=== PATIENT | female | born 1980 | race Caucasian/White ===

== ENCOUNTER 2018-03-23 16:40 | Emergency (ER) | payer OTHER ==
--- NOTE | 2018-03-23 17:18 | RAD ---
RIGHT GREAT TOE THREE VIEWS: INDICATIONS: Posttraumatic pain. FINDINGS: No evidence of a displaced fracture of the great toe of the right foot. There is mild osteoarthritis . No foreign body of the soft tissues is evident radiographically. IMPRESSION: No acute fracture-dislocation of the great toe of the right foot. POS: [facility]ACK
== END 2018-03-23 17:50 | disposition home or self-care (01) ==
LOC: ERS 16:40
DX: S90.211A Contusion of right great toe with damage to nail, initial encounter (principal); I10 Essential (primary) hypertension; G43.909 Migraine, unspecified, not intractable, without status migrainosus; F32.9 Major depressive disorder, single episode, unspecified; F17.210 Nicotine dependence, cigarettes, uncomplicated; W52.XXXA Crushed, pushed or stepped on by crowd or human stampede, initial encounter

== ENCOUNTER 2018-12-13 09:26 | Emergency (ER) | payer OTHER | END 2018-12-13 09:47 | disposition home or self-care (01) | LOC: SCSER 09:26 | DX: L03.116 Cellulitis of left lower limb (principal); I10 Essential (primary) hypertension; G43.909 Migraine, unspecified, not intractable, without status migrainosus; F32.9 Major depressive disorder, single episode, unspecified; F17.210 Nicotine dependence, cigarettes, uncomplicated | CPT/HCPCS: 99283 ==

== ENCOUNTER 2019-01-17 13:40 | Emergency (ER) | payer OTHER | END 2019-01-17 13:58 | disposition home or self-care (01) | LOC: SCSER 13:40 | DX: H01.006 Unspecified blepharitis left eye, unspecified eyelid (principal); H01.003 Unspecified blepharitis right eye, unspecified eyelid; I10 Essential (primary) hypertension; G43.909 Migraine, unspecified, not intractable, without status migrainosus; F32.9 Major depressive disorder, single episode, unspecified; F17.210 Nicotine dependence, cigarettes, uncomplicated; Z79.899 Other long term (current) drug therapy | CPT/HCPCS: 99283 ==

== ENCOUNTER 2019-01-24 14:36 | Emergency (ER) | payer OTHER ==
[2019-01-24] MEDS ORDERED: Acetaminophen 500 MG TAB ONE ×2 (16:19→18:20)
[2019-01-24] MEDS ORDERED: diphenhydrAMINE 50 MG/ML VIAL ONE ×2 (16:19→18:20)
[2019-01-24] MEDS ORDERED: Metoclopramide HCl 10 MG/2 ML VIAL ONE ×2 (16:19→18:20)
[2019-01-24] MEDS ORDERED: Metoclopramide HCl 10 MG/2 ML VIAL IVP SCH (16:30)
[2019-01-24] MEDS ORDERED: Sodium Chloride 0.9% 1,000 ML IV SCH (16:30)
[2019-01-24] MEDS ORDERED: diphenhydrAMINE 50 MG/ML VIAL IVP SCH (16:30)
[2019-01-24] MEDS ORDERED: Acetaminophen 500 MG TAB PO SCH (16:30)
[2019-01-24 16:32] LABS: #Eosinphils 0.1 thou/uL (0.0-0.7); #Lymphocytes 2.8 thou/uL (1.20-3.40); #Monocytes 0.3 thou/uL (0.11-0.59); #Neutrophils 5.4 thou/uL (1.40-6.50); %Basophils 0.3 % (0.0-1.0); %Eosinophils 1.4 % (0.0-10.0); %Lymphocytes 32.3 % (21.0-51.0); %Monocytes 3.6 % (0.0-10.0); %Neutrophils 62.4 % (42.0-75.0); Hemoglobin 13.1 g/dL (12.0-16.0); Mean Corpuscular HGB CONC 33.4 g/dL (32.0-36.0); Mean Corpuscular Hemoglobin 29.3 pg (27.0-31.0); Mean Corpuscular Volume 87.6 fL (78.0-98.0); Mean Platelet Volume 8.2 fL (7.4-10.4); Platelet Count 213 thou/uL (130-400); RBC Distribution Width 11.8 % (11.5-14.5); Red Blood Cell (RBC) Count 4.46 mill/uL (4.20-5.40); White Blood Cell (WBC) Count 8.7 thou/uL (4.8-10.8)
[2019-01-24 16:38] LABS: INR-International Normal Ratio 1.1; PTT 28.9 SEC (22.9-36.1); Prothrombin Time 14.2 SEC (12.0-14.7)
[2019-01-24 16:55] LABS: ALT (SGPT) 15 U/L (8-55); AST (SGOT) 19 U/L (5-34); Alkaline Phosphatase 76 U/L (40-110); Anion Gap 14 mmol/L (10-20); BUN (Urea Nitrogen) 11 mg/dL (7.0-18.7); Bilirubin, Total 0.4 mg/dL (0.2-1.2); Calc. Creatinine Clearance 0 mL/min (70-130); Calcium 9.4 mg/dL (7.8-10.44); Carbon Dioxide 22 mmol/L (22-29); Chloride 107 mmol/L (98-107); Estimated GFR-MDRD 84; Globulin 2.7 g/dL (2.4-3.5); Glucose 96 mg/dL (70-105); Protein, Total 6.7 g/dL (6.0-8.3); Sodium 139 mmol/L (136-145)
--- NOTE | 2019-01-24 17:07 | CT ---
Exam: CT brain PROVIDED CLINICAL HISTORY: Headache COMPARISON: 10/23/2018 FINDINGS: The ventricular system is normal in size and morphology. No evidence for intracranial hemorrhage or mass effect. The extracranial soft tissues and osseous structures demonstrate no evidence for an acute abnormality. IMPRESSION: No evidence for intracranial hemorrhage or mass effect.
[2019-01-24] MEDS ORDERED: Ketorolac Tromethamine 30 MG/ML VIAL ONE (18:24)
== END 2019-01-24 18:42 | disposition home or self-care (01) ==
LOC: ERS 14:36
DX: G43.909 Migraine, unspecified, not intractable, without status migrainosus (principal); I10 Essential (primary) hypertension; F32.9 Major depressive disorder, single episode, unspecified; F17.210 Nicotine dependence, cigarettes, uncomplicated; Z79.899 Other long term (current) drug therapy
CPT/HCPCS: 70450; 80053; 85025; 85610; 85730; 93005; 96365; 96375; J1200; J1885; J2765

== ENCOUNTER 2019-12-09 17:17 | Emergency (ER) | payer OTHER ==
[2019-12-09] MEDS ORDERED: Ketorolac Tromethamine 30 MG/ML VIAL ONE (17:36)
== END 2019-12-09 17:54 | disposition home or self-care (01) ==
LOC: ERS 17:17
DX: M67.432 Ganglion, left wrist (principal); G43.909 Migraine, unspecified, not intractable, without status migrainosus; I10 Essential (primary) hypertension; F32.9 Major depressive disorder, single episode, unspecified; F17.210 Nicotine dependence, cigarettes, uncomplicated; Z79.899 Other long term (current) drug therapy
CPT/HCPCS: 96372; 99283; J1885

== ENCOUNTER 2020-03-20 08:35 | Emergency (ER) | payer OTHER ==
[2020-03-20] MEDS ORDERED: Acetaminophen 500 MG TAB ONE (09:01)
[2020-03-20 09:08] LABS: Bilirubin Negative (Negative); Blood, Urine Negative (Negative); Clarity Clear (Clear); Glucose, Urine (Dipstick) Normal (Negative); Ketone, Urine Negative (Negative); Leukocyte Negative Leu/uL (Negative); Nitrite Negative (Negative); Protein, Urine (Dipstick) 10 mg/dL (Neg-Trace); Specific Gravity, Urine 1.027 (1.002-1.036); Urobilinogen 6 mg/dL (Less than 2)
[2020-03-20 09:43] LABS: #Basophils 0.1 thou/uL (0.0-0.2); #Eosinphils 0.1 thou/uL (0.0-0.7); #Lymphocytes 1.4 thou/uL (1.20-3.40); #Monocytes 0.3 thou/uL (0.11-0.59); #Neutrophils 4.6 thou/uL (1.40-6.50); %Basophils 0.8 % (0.0-1.0); %Eosinophils 1.1 % (0.0-10.0); %Lymphocytes 21.6 % (21.0-51.0); %Monocytes 5.2 % (0.0-10.0); %Neutrophils 71.4 % (42.0-75.0); Hemoglobin 10.6 g/dL (12.0-16.0); Mean Corpuscular Hemoglobin 30.8 pg (27.0-31.0); Mean Corpuscular Volume 90.5 fL (78.0-98.0); Mean Platelet Volume 8.2 fL (7.4-10.4); Platelet Count 200 thou/uL (130-400); RBC Distribution Width 12.3 % (11.5-14.5); Red Blood Cell (RBC) Count 3.45 mill/uL (4.20-5.40); White Blood Cell (WBC) Count 6.4 thou/uL (4.8-10.8)
[2020-03-20 10:02] LABS: ALT (SGPT) 10 U/L (8-55); AST (SGOT) 12 U/L (5-34); Albumin 3.3 g/dL (3.5-5.0); Alkaline Phosphatase 64 U/L (40-110); Anion Gap 13 mmol/L (10-20); BUN (Urea Nitrogen) 11 mg/dL (7.0-18.7); Bilirubin, Total 0.4 mg/dL (0.2-1.2); Calc. Creatinine Clearance 0 mL/min (70-130); Carbon Dioxide 19 mmol/L (22-29); Chloride 109 mmol/L (98-107); Globulin 2.7 g/dL (2.4-3.5); Glucose 82 mg/dL (70-105); Potassium 3.7 mmol/L (3.5-5.1); Sodium 137 mmol/L (136-145)
--- NOTE | 2020-03-20 10:06 | ULT ---
Pelvic sonogram transabdominal imaging with duplex evaluation HISTORY: Pelvic pain. Ovarian pathology. Second trimester gestation. FINDINGS: Urinary bladder is partially distended. Intrauterine gestation evident. Heart motion confir med at 143 bpm. No free fluid evident within the maternal pelvis. Right ovary is 3.5 cm length and the left 3.0 cm. Each has a normal appearance with good color and sp ectral Doppler flow. IMPRESSION : No ovarian abnormalities are demonstrated.
== END 2020-03-20 10:34 | disposition home or self-care (01) ==
LOC: ERS 08:35
DX: O99.891 Other specified diseases and conditions complicating pregnancy (principal); R10.32 Left lower quadrant pain; O10.912 Unspecified pre-existing hypertension complicating pregnancy, second trimester; Z3A.18 18 weeks gestation of pregnancy
CPT/HCPCS: 76856; 80053; 81003; 85025; 93976

== ENCOUNTER 2020-04-17 16:30 | Day surgery (SDC) | payer OTHER ==
[2020-04-17 16:56] VITALS: BMI 30.9
[2020-04-17 17:31] LABS: Bacteria/HPF None Seen HPF (None Seen); Bilirubin Negative (Negative); Blood, Urine 3+ (Negative); Clarity Turbid (Clear); Glucose, Urine (Dipstick) 500 mg/dL (Negative); Ketone, Urine Trace mg/dL (Negative); Leukocyte Negative Leu/uL (Negative); Nitrite Negative (Negative); Protein, Urine (Dipstick) 70 mg/dL (Neg-Trace); RBC/HPF Greater than 50 HPF (0-3); Specific Gravity, Urine 1.032 (1.002-1.036); Squamous Epithelial 0-3 HPF (0-3); WBC/HPF 0-3 HPF (0-3); pH, Urine 5.5 (5.0-9.0)
[2020-04-17 18:48] LABS: Anion Gap 11 mmol/L (10-20); BUN (Urea Nitrogen) 12 mg/dL (7.0-18.7); Calc. Creatinine Clearance 178 mL/min (70-130); Calcium 8.2 mg/dL (7.8-10.44); Carbon Dioxide 21 mmol/L (22-29); Chloride 108 mmol/L (98-107); Glucose 70 mg/dL (70-105); Potassium 4.3 mmol/L (3.5-5.1); Sodium 136 mmol/L (136-145)
[2020-04-17] MEDS ORDERED: hydrALAZINE 20 MG/ML VIAL SLOW IVP PRN (22:40)
== END 2020-04-17 19:25 | disposition home or self-care (01) ==
LOC: L&D/OP 16:30
PROVIDERS: ATTEND Obstetrics & Gynecology
DX: O99.891 Other specified diseases and conditions complicating pregnancy (principal); R31.0 Gross hematuria; R10.2 Pelvic and perineal pain; N28.1 Cyst of kidney, acquired; O11.2 Pre-existing hypertension with pre-eclampsia, second trimester; O99.842 Bariatric surgery status complicating pregnancy, second trimester; O09.522 Supervision of elderly multigravida, second trimester; Z3A.22 22 weeks gestation of pregnancy
CPT/HCPCS: 36415; 76770; 80048; 81001; 87086; 99284

== ENCOUNTER 2021-03-11 11:40 | Emergency (ER) | payer OTHER ==
[2021-03-11 13:13] LABS: #Eosinphils 0.1 thou/uL (0.0-0.7); #Lymphocytes 0.9 thou/uL (1.20-3.40); #Monocytes 0.4 thou/uL (0.11-0.59); #Neutrophils 2.4 thou/uL (1.40-6.50); %Basophils 0.5 % (0.0-1.0); %Monocytes 10.8 % (0.0-10.0); %Neutrophils 62.7 % (42.0-75.0); Hemoglobin 8.7 g/dL (12.0-16.0); Mean Corpuscular HGB CONC 30.5 g/dL (32.0-36.0); Mean Corpuscular Hemoglobin 20.3 pg (27.0-31.0); Mean Corpuscular Volume 66.3 fL (78.0-98.0); Mean Platelet Volume 11.4 fL (7.4-10.4); Platelet Count 215 thou/uL (130-400); RBC Distribution Width 16.7 % (11.5-14.5); Red Blood Cell (RBC) Count 4.31 mill/uL (4.20-5.40); White Blood Cell (WBC) Count 3.8 thou/uL (4.8-10.8)
[2021-03-11] MEDS ORDERED: Ketorolac Tromethamine 30 MG/ML VIAL ONE (13:35)
[2021-03-11 13:37] LABS: ALT (SGPT) 19 U/L (8-55); AST (SGOT) 19 U/L (5-34); Albumin 3.8 g/dL (3.5-5.0); Alkaline Phosphatase 82 U/L (40-110); Anion Gap 10 mmol/L (10-20); BUN (Urea Nitrogen) 8 mg/dL (7.0-18.7); Bilirubin, Total 0.3 mg/dL (0.2-1.2); Calc. Creatinine Clearance 0 mL/min (70-130); Calcium 9.1 mg/dL (7.8-10.44); Carbon Dioxide 25 mmol/L (22-29); Chloride 106 mmol/L (98-107); Globulin 3.1 g/dL (2.4-3.5); Glucose 91 mg/dL (70-105); Potassium 4.2 mmol/L (3.5-5.1); Protein, Total 6.9 g/dL (6.0-8.3); Sodium 137 mmol/L (136-145)
[2021-03-11 13:46] LABS: Anisocytosis SLIGHT = 6-15 cells (100X) (0-5/hpf); Hypochromia SLIGHT = 6-15 cells (100X) (0-5/hpf); MDiff Complete? YES; Microcytosis SLIGHT = 6-15 cells (100X) (0-5/hpf); Ovalocytes SLIGHT = 2-5 cells (100X) (0-1/hpf); Platelet Morphology Comment Appears Adequate; Polychromasia SLIGHT = 2-3 cells (100X) (0-2/hpf)
[2021-03-11 19:40] LABS: SARS-CoV-2 PCR by NAA Not Detected (NotDetected)
== END 2021-03-11 14:35 | disposition home or self-care (01) ==
LOC: ERS 11:40
DX: J11.1 Influenza due to unidentified influenza virus with other respiratory manifestations (principal); Z20.822 Contact with and (suspected) exposure to COVID-19; I10 Essential (primary) hypertension; F17.210 Nicotine dependence, cigarettes, uncomplicated
CPT/HCPCS: 36415; 80053; 85025; 87804; 96374; J1885; U0003; U0005

== ENCOUNTER 2021-05-01 09:33 | Outpatient (CLI) | payer OTHER | END 2021-05-01 09:34 | disposition home or self-care (01) | LOC: RAD 09:33 | PROVIDERS: ATTEND Surgery | DX: K21.9 Gastro-esophageal reflux disease without esophagitis (principal); N20.0 Calculus of kidney; K44.9 Diaphragmatic hernia without obstruction or gangrene | CPT/HCPCS: 74246 ==

== ENCOUNTER 2021-12-20 15:10 | Outpatient (CLI) | payer OTHER | END 2021-12-20 15:11 | disposition home or self-care (01) | LOC: LABBT 15:10 | PROVIDERS: ATTEND Surgery | DX: Z20.822 Contact with and (suspected) exposure to COVID-19 (principal) | CPT/HCPCS: 87811 ==

== ENCOUNTER 2021-12-20 15:30 | Inpatient (IN) | payer OTHER ==
[2021-12-25] MEDS ORDERED: EPINEPHrine 1 MG/ML AMP ONE (09:58)
[2021-12-25] MEDS ORDERED: Bupivacaine 0.25% HCL 30 ML VIAL ONE (09:58)
[2021-12-25] MEDS ORDERED: cefOXitin 2 GM VIAL ONE (10:34)
[2021-12-25] MEDS ORDERED: Sodium Chloride 0.9% 100 ML ONE (10:34)
[2021-12-25] MEDS ORDERED: NEOSTIGMINE 3 MG/3 ML SYR 3 MG/3 ML SYRINGE ONE (10:59)
[2021-12-25] MEDS ORDERED: Succinylcholine 200 MG/10 ml SYRINGE FS ONE (10:59)
[2021-12-25] MEDS ORDERED: Ondansetron PF 4 MG/2 ML Vial ONE ×2 (10:59→13:04)
[2021-12-25] MEDS ORDERED: Dexamethasone 20 MG/5 ML VIAL ONE (10:59)
[2021-12-25] MEDS ORDERED: PROPOFOL 200 MG/20 ML VIAL ONE (10:59)
[2021-12-25] MEDS ORDERED: Glycopyrrolate 0.2 MG/ML 5 ML SYRINGE ONE (10:59)
[2021-12-25] MEDS ORDERED: Lidocaine 1% PF 5 ML VIAL ONE (10:59)
[2021-12-25] MEDS ORDERED: Rocuronium Bromide 10 MG/ML (10ML VIAL) ONE (10:59)
[2021-12-25] MEDS ORDERED: fentaNYL Citrate/PF 100 MCG/2 ML SYRINGE ONE (11:13)
[2021-12-25] MEDS ORDERED: diphenhydrAMINE 50 MG/ML VIAL IVP PRN (12:59)
[2021-12-25] MEDS ORDERED: Promethazine HCl 25 MG/ML VIAL IM PRN ×2 (12:59→13:05)
[2021-12-25] MEDS ORDERED: hydrALAZINE 20 MG/ML VIAL SLOW IVP PRN (12:59)
[2021-12-25] MEDS ORDERED: Morphine 2 MG/ML VIAL SLOW IVP PRN (12:59)
[2021-12-25] MEDS ORDERED: Dextrose 50% Abboject 50 ML SYRINGE SLOW IVP PRN (12:59)
[2021-12-25] MEDS ORDERED: Ondansetron PF 4 MG/2 ML Vial IVP PRN (12:59)
[2021-12-25] MEDS ORDERED: Dextrose 5% in Water 1,000 ML IV PRN (12:59)
[2021-12-25] MEDS ORDERED: Promethazine HCl 25 MG/ML VIAL IVPB PRN (13:05)
[2021-12-25] MEDS ORDERED: Ondansetron HCl/PF 4 MG/2 ML Vial IVP PRN (13:05)
[2021-12-25] MEDS ORDERED: Fentanyl 100 MCG/2 ML VIAL ONE (13:11)
[2021-12-25] MEDS ORDERED: Promethazine HCl 25 MG/ML VIAL ONE (13:20)
[2021-12-25] MEDS ORDERED: NS 0.9% w/ 20 MEQ KCL 1,000 ML ONE (13:21)
[2021-12-25] MEDS: D5 1/2 NS w/20 mEq KCL 1,000 ML IV SCH ×2 (13:41→19:19)
[2021-12-25] MEDS: Hydrocodone-Acetamin 15 ML UDCUP PO PRN ×2 (15:53→20:44)
[2021-12-25 15:56] VITALS: BMI 30.4
[2021-12-26] MEDS: Hydrocodone-Acetamin 15 ML UDCUP PO PRN ×3 (02:14→12:21)
[2021-12-26] MEDS: D5 1/2 NS w/20 mEq KCL 1,000 ML IV SCH (02:16)
[2021-12-26 06:30] LABS: Anion Gap 11 mmol/L (10-20); BUN (Urea Nitrogen) 6 mg/dL (7.0-18.7); Calc. Creatinine Clearance 136 mL/min (70-130); Calcium 8.6 mg/dL (7.8-10.44); Carbon Dioxide 23 mmol/L (22-29); Chloride 107 mmol/L (98-107); Estimated GFR 108; Glucose 104 mg/dL (70-105); Potassium 4.5 mmol/L (3.5-5.1); Sodium 136 mmol/L (136-145)
[2021-12-26 06:43] LABS: #Eosinphils 0.1 thou/uL (0.0-0.7); #Lymphocytes 1.7 thou/uL (1.20-3.40); #Monocytes 0.7 thou/uL (0.11-0.59); #Neutrophils 7.3 thou/uL (1.40-6.50); %Basophils 0.2 % (0.0-1.0); %Eosinophils 1.1 % (0.0-10.0); %Lymphocytes 16.8 % (21.0-51.0); %Neutrophils 74.9 % (42.0-75.0); Hemoglobin 7.8 g/dL (12.0-16.0); Hypochromia SLIGHT = 6-15 cells (100X) (0-5/hpf); MDiff Complete? YES; Mean Corpuscular HGB CONC 27.9 g/dL (32.0-36.0); Mean Corpuscular Hemoglobin 18.7 pg (27.0-31.0); Mean Corpuscular Volume 66.9 fL (78.0-98.0); Mean Platelet Volume 12.4 fL (7.4-10.4); Microcytosis SLIGHT = 6-15 cells (100X) (0-5/hpf); Platelet Count 198 thou/uL (130-400); RBC Distribution Width 16.6 % (11.5-14.5); Red Blood Cell (RBC) Count 4.16 mill/uL (4.20-5.40); White Blood Cell (WBC) Count 9.8 thou/uL (4.8-10.8)
[2021-12-26] MEDS ORDERED: Enoxaparin Sodium 40 MG/0.4 ML SYRINGE SC SCH (09:00)
[2021-12-26 11:39] VITALS: BP 153/88; TEMP 98.1
== END 2021-12-26 14:35 | disposition home or self-care (01) | DRG 328 ==
LOC: SURG A 12-25 07:19
PROVIDERS: ADMIT Surgery; ATTEND Surgery
PROC: 0BQT4ZZ Repair Diaphragm, Percutaneous Endoscopic Approach (ICD-10-PCS; principal; 2021-12-25)
PROC: 8E0W4CZ Robotic Assisted Procedure of Trunk Region, Percutaneous Endoscopic Approach (ICD-10-PCS; 2021-12-25)
DX: K44.9 Diaphragmatic hernia without obstruction or gangrene (principal); K21.9 Gastro-esophageal reflux disease without esophagitis; Z20.822 Contact with and (suspected) exposure to COVID-19; G43.909 Migraine, unspecified, not intractable, without status migrainosus; I10 Essential (primary) hypertension; F17.210 Nicotine dependence, cigarettes, uncomplicated; E66.9 Obesity, unspecified; F32.9 Major depressive disorder, single episode, unspecified; E55.9 Vitamin D deficiency, unspecified; E53.8 Deficiency of other specified B group vitamins; R20.2 Paresthesia of skin; D50.9 Iron deficiency anemia, unspecified; Z88.6 Allergy status to analgesic agent; Z98.84 Bariatric surgery status; Z79.899 Other long term (current) drug therapy; Z98.890 Other specified postprocedural states; Z91.040 Latex allergy status; Z68.30 Body mass index [BMI] 30.0-30.9, adult
CPT/HCPCS: 36415; 80048; 85025; 86850; 86900; 86901; C1713; J0171; J0694; J1100; J1650; J2270; J2405; J2550; J2704; J3010; J3480; J3490; S0020

== ENCOUNTER 2022-01-20 14:40 | Emergency (ER) | payer OTHER ==
[~2022-01-20 14:40] MED LIST: GASTROGRAFIN 30 ML BOT ONE; Iopamidol-370 76% 500 ML 1 ML ONE
[2022-01-20 15:31] LABS: BHCG - Serum Negative (NEGATIVE); Pregs Control Background? CLEAR/WHITE (CLR/WHITE); Pregs Control Bar Appear? YES (CONTROL BAR)
[2022-01-20 15:39] LABS: #Eosinphils 0.2 thou/uL (0.0-0.7); #Lymphocytes 1.9 thou/uL (1.20-3.40); #Monocytes 0.6 thou/uL (0.11-0.59); #Neutrophils 3.7 thou/uL (1.40-6.50); %Basophils 0.2 % (0.0-1.0); %Eosinophils 3.1 % (0.0-10.0); %Lymphocytes 29.3 % (21.0-51.0); %Neutrophils 57.4 % (42.0-75.0); Hemoglobin 7.9 g/dL (12.0-16.0); Mean Corpuscular HGB CONC 28.9 g/dL (32.0-36.0); Mean Corpuscular Hemoglobin 19.4 pg (27.0-31.0); Mean Corpuscular Volume 67.2 fl (78.0-98.0); Mean Platelet Volume 10.4 fL (7.4-10.4); Platelet Count 270 thou/uL (130-400); RBC Distribution Width 17.4 % (11.5-14.5); Red Blood Cell (RBC) Count 4.05 mill/uL (4.20-5.40); White Blood Cell (WBC) Count 6.4 thou/uL (4.8-10.8)
[2022-01-20 15:48] LABS: ALT (SGPT) 16 U/L (8-55); AST (SGOT) 18 U/L (5-34); Albumin 3.7 g/dL (3.5-5.0); Alkaline Phosphatase 86 U/L (40-110); Anion Gap 10 mmol/L (10-20); BUN (Urea Nitrogen) 11 mg/dL (7.0-18.7); Bilirubin, Total 0.3 mg/dL (0.2-1.2); Calc. Creatinine Clearance 0 mL/min (70-130); Calcium 8.9 mg/dL (7.8-10.44); Carbon Dioxide 24 mmol/L (22-29); Chloride 106 mmol/L (98-107); Estimated GFR 114; Globulin 2.7 g/dL (2.4-3.5); Glucose 78 mg/dL (70-105); Lipase 16 U/L (8-78); Potassium 3.9 mmol/L (3.5-5.1); Protein, Total 6.4 g/dL (6.0-8.3); Sodium 136 mmol/L (136-145)
== END 2022-01-20 17:02 | disposition home or self-care (01) ==
LOC: ERS 14:40
DX: D50.9 Iron deficiency anemia, unspecified (principal); I10 Essential (primary) hypertension; F17.210 Nicotine dependence, cigarettes, uncomplicated
CPT/HCPCS: 36415; 74177; 80053; 83690; 84703; 85025; Q9963; Q9967

== ENCOUNTER 2022-04-25 18:15 | Emergency (ER) | payer OTHER ==
[2022-04-25 18:54] LABS: #Basophils 0.1 thou/uL (0.0-0.2); #Eosinphils 0.2 thou/uL (0.0-0.7); #Lymphocytes 2.1 thou/uL (1.20-3.40); #Monocytes 0.7 thou/uL (0.11-0.59); #Neutrophils 5.7 thou/uL (1.40-6.50); %Basophils 0.7 % (0.0-1.0); %Eosinophils 2.6 % (0.0-10.0); %Lymphocytes 24.1 % (21.0-51.0); %Monocytes 7.5 % (0.0-10.0); %Neutrophils 65.2 % (42.0-75.0); Hemoglobin 7.9 g/dL (12.0-16.0); Mean Corpuscular HGB CONC 29.1 g/dL (32.0-36.0); Mean Corpuscular Hemoglobin 18.4 pg (27.0-31.0); Mean Corpuscular Volume 63.2 fl (78.0-98.0); Mean Platelet Volume 6.7 fL (7.4-10.4); Platelet Count 251 10x3/uL (130-400); Red Blood Cell (RBC) Count 4.31 mill/uL (4.20-5.40); White Blood Cell (WBC) Count 8.7 10x3/uL (4.8-10.8)
[2022-04-25 19:16] LABS: Anisocytosis SLIGHT = 6-15 cells (100X) (0-5/hpf); Hypochromia MODERATE=16-30 cells (100X) (0-5/hpf); MDiff Complete? YES; Microcytosis MODERATE=15-30 cells (100X) (0-5/hpf); Ovalocytes SLIGHT = 2-5 cells (100X) (0-1/hpf); Platelet Morphology Comment Appears Adequate; Polychromasia SLIGHT = 2-3 cells (100X) (0-2/hpf); Reflex for Review?? NO; Target Cells SLIGHT = 2-5 cells (100X) (0-1/hpf)
[2022-04-25 19:24] LABS: ALT (SGPT) 19 U/L (8-55); AST (SGOT) 22 U/L (5-34); Albumin 3.9 g/dL (3.5-5.0); Alkaline Phosphatase 98 U/L (40-110); Anion Gap 11 mmol/L (10-20); BUN (Urea Nitrogen) 14 mg/dL (7.0-18.7); Bilirubin, Total 0.4 mg/dL (0.2-1.2); Calc. Creatinine Clearance 0 mL/min (70-130); Calcium 9.1 mg/dL (7.8-10.44); Carbon Dioxide 20 mmol/L (22-29); Chloride 109 mmol/L (98-107); Estimated GFR 113; Globulin 2.9 g/dL (2.4-3.5); Glucose 75 mg/dL (70-105); Lipase 31 U/L (8-78); Potassium 4.1 mmol/L (3.5-5.1); Protein, Total 6.8 g/dL (6.0-8.3); Sodium 136 mmol/L (136-145)
[2022-04-25 21:07] LABS: Bilirubin Negative (Negative); Blood, Urine Negative (Negative); Clarity Clear (Clear); Glucose, Urine (Dipstick) Normal (Negative); Ketone, Urine Negative (Negative); Leukocyte Negative Leu/uL (Negative); Nitrite Negative (Negative); Protein, Urine (Dipstick) Negative (Neg-Trace); Specific Gravity, Urine 1.027 (1.002-1.036); pH, Urine 5.5 (5.0-9.0)
[2022-04-25 22:16] LABS: BHCG - Serum Negative (NEGATIVE); Pregs Control Background? CLEAR/WHITE (CLR/WHITE); Pregs Control Bar Appear? YES (CONTROL BAR)
[2022-04-25] MEDS ORDERED: Mag-Al 1200 mg/1200 mg/30 ML UDCUP ONE (22:17)
[2022-04-25] MEDS ORDERED: Lidocaine Viscous Sol 2% 15 ml UD Cup ONE (22:17)
== END 2022-04-25 22:54 | disposition home or self-care (01) ==
LOC: ERS 18:15
DX: R10.10 Upper abdominal pain, unspecified (principal); R10.816 Epigastric abdominal tenderness; D64.9 Anemia, unspecified; I10 Essential (primary) hypertension; F17.210 Nicotine dependence, cigarettes, uncomplicated
CPT/HCPCS: 36415; 80053; 81003; 83690; 84703; 85025; 93005

== ENCOUNTER 2023-04-08 10:07 | Emergency (ER) | payer OTHER, SELFPAY ==
[2023-04-08 12:11] LABS: Pregnancy Test - Urine (BHCG) Negative (Negative); Pregu Control Bar Appear? YES (CONTROL BAR); Specific Gravity 1.018 (1.002-1.036)
[2023-04-08 12:12] LABS: Pregu Control Background? CLEAR/WHITE (CLR/WHITE)
== END 2023-04-08 12:49 | disposition home or self-care (01) ==
LOC: ERS 10:07
DX: U07.1 COVID-19 (principal); F17.210 Nicotine dependence, cigarettes, uncomplicated
CPT/HCPCS: 81025; 99283

== ENCOUNTER 2023-04-20 17:54 | Emergency (ER) | payer SELFPAY ==
[~2023-04-20 17:54] MED LIST changes: -GASTROGRAFIN 30 ML BOT ONE; -Iopamidol-370 76% 500 ML 1 ML ONE; +Iopamidol-370 76% 500 ML MDV (1 ML CHARGE) ONE
[2023-04-20 18:51] LABS: #Eosinphils 0.1 thou/uL (0.0-0.7); #Monocytes 0.7 thou/uL (0.11-0.59); #Neutrophils 5.9 thou/uL (1.40-6.50); %Basophils 0.3 % (0.0-1.0); %Eosinophils 1.4 % (0.0-10.0); %Lymphocytes 23.6 % (21.0-51.0); %Neutrophils 66.5 % (42.0-75.0); Hematocrit 22.6 % (36.0-47.0); Hemoglobin 5.8 g/dL (12.0-16.0); Mean Corpuscular HGB CONC 25.7 g/dL (32.0-36.0); Mean Corpuscular Hemoglobin 15.7 pg (27.0-31.0); Mean Corpuscular Volume 61.1 fl (78.0-98.0); Mean Platelet Volume 10.3 fL (7.4-10.4); Platelet Count 326 10x3/uL (130-400); RBC Distribution Width 21.8 % (11.5-14.5); White Blood Cell (WBC) Count 8.8 10x3/uL (4.8-10.8)
[2023-04-20 19:02] LABS: Critical Call w/ Read Back NUR.DF@1902
[2023-04-20 19:15] LABS: ALT (SGPT) 24 U/L (8-55); AST (SGOT) 28 U/L (5-34); Alkaline Phosphatase 104 U/L (40-110); Anion Gap 10 mmol/L (10-20); BUN (Urea Nitrogen) 14 mg/dL (7.0-18.7); Bilirubin, Total 0.4 mg/dL (0.2-1.2); Calc. Creatinine Clearance 0 mL/min (70-130); Carbon Dioxide 20 mmol/L (22-29); Chloride 110 mmol/L (98-107); Estimated GFR 111; Globulin 2.9 g/dL (2.4-3.5); Glucose 77 mg/dL (70-105); Lipase 40 U/L (8-78); Potassium 4.4 mmol/L (3.5-5.1); Protein, Total 6.9 g/dL (6.0-8.3); Sodium 136 mmol/L (136-145)
[2023-04-20 19:22] LABS: Anisocytosis SLIGHT = 6-15 cells HPF (0-5); CellaVision Operator ID LAB.MJL; Hypochromia MODERATE=16-30 cells HPF (0-5); Microcytosis SLIGHT = 6-15 cells HPF (0-5); Ovalocytes SLIGHT = 2-5 cells HPF (0-1); Platelet Adequacy Comment Platelets Normal; Poikilocytosis MODERATE=16-30 cells HPF (0-5); Polychromasia MODERATE = 3-4 cells HPF (0-2); Schistocytes SLIGHT = 2-5 cells HPF (0-1); Stomatocytes SLIGHT = 2-5 cells HPF (0-1); Target Cells SLIGHT = 2-5 cells HPF (0-1)
[2023-04-20 19:58] LABS: BHCG - Serum Negative (NEGATIVE); Pregs Control Background? CLEAR/WHITE (CLR/WHITE); Pregs Control Bar Appear? YES (CONTROL BAR)
[2023-04-20] MEDS ORDERED: Ondansetron PF 4 MG/2 ML Vial ONE (19:59)
[2023-04-20] MEDS ORDERED: Morphine 4 MG/ML VIAL ONE ×2 (19:59→23:24)
[2023-04-20 20:09] LABS: Troponin I Less than 0.010 ng/mL (< 0.028)
[2023-04-20 22:22] LABS: Bilirubin Negative (Negative); Blood, Urine 3+ (Negative); CAUTI Indications for Culture Pelvic or flank pain; Clarity Clear (Clear); Glucose, Urine (Dipstick) Normal (Negative); Ketone, Urine Negative (Negative); Leukocyte 75 Leu/uL (Negative); Mucous/LPF Rare LPF (<2+); Nitrite Negative (Negative); Protein, Urine (Dipstick) Negative (Neg-Trace); Specific Gravity, Urine 1.029 (1.002-1.036); Squamous Epithelial 0-3 HPF (0-3); Urobilinogen Normal mg/dL (Less than 2); pH, Urine 5.5 (5.0-9.0)
[2023-04-20 22:23] LABS: Bacteria/HPF 1+ HPF (None Seen)
[2023-04-20 22:24] LABS: Pregnancy Test - Urine (BHCG) Negative (Negative); Pregu Control Background? CLEAR/WHITE (CLR/WHITE); Pregu Control Bar Appear? YES (CONTROL BAR); Specific Gravity 1.029 (1.002-1.036); Urine Culture Reflex Yes Yes
[2023-04-20] MEDS ORDERED: cefTRIAXone (ROCEPHIN) 2 GM VIAL ONE (23:24)
[2023-04-20] MEDS ORDERED: Sodium Chloride 0.9% 100 ML ONE (23:24)
[2023-04-21] MEDS ORDERED: Pantoprazole 40 MG VIAL ONE (00:24)
== END 2023-04-21 02:38 | disposition admitted as inpatient to this hospital (09) ==
LOC: ERS 17:54
DX: D64.9 Anemia, unspecified (principal); K56.2 Volvulus; F17.210 Nicotine dependence, cigarettes, uncomplicated
CPT/HCPCS: 36415; 36430; 74177; 80053; 81001; 81025; 83605; 83690; 83880; 84484; 84703; 85025; 86850; 86900; 86901; 87077; 87086; 93005; 96365; 96375; 96376; C9113; J0696; J2270; J2405; J3490; P9016; Q9967

== ENCOUNTER 2023-05-06 18:00 | Inpatient (IN) | payer SELFPAY ==
[2023-05-06 18:47] LABS: #Basophils 0.1 thou/uL (0.0-0.2); #Eosinphils 0.3 thou/uL (0.0-0.7); #Monocytes 0.7 thou/uL (0.11-0.59); #Neutrophils 9.4 thou/uL (1.40-6.50); %Basophils 0.5 % (0.0-1.0); %Eosinophils 2.4 % (0.0-10.0); %Lymphocytes 14.8 % (21.0-51.0); %Monocytes 5.5 % (0.0-10.0); %Neutrophils 76.6 % (42.0-75.0); Hematocrit 34.5 % (36.0-47.0); Hemoglobin 9.6 g/dL (12.0-16.0); Mean Corpuscular HGB CONC 27.8 g/dL (32.0-36.0); Mean Corpuscular Hemoglobin 19.5 pg (27.0-31.0); Mean Platelet Volume 9.9 fL (7.4-10.4); Platelet Count 453 10x3/uL (130-400); RBC Distribution Width 29.2 % (11.5-14.5); Red Blood Cell (RBC) Count 4.93 mill/uL (4.20-5.40); White Blood Cell (WBC) Count 12.3 10x3/uL (4.8-10.8)
[2023-05-06 19:11] LABS: Anisocytosis MODERATE=16-30 cells HPF (0-5); CellaVision Operator ID LAB.MJL; Hypochromia MODERATE=16-30 cells HPF (0-5); Microcytosis SLIGHT = 6-15 cells HPF (0-5); Ovalocytes SLIGHT = 2-5 cells HPF (0-1); Platelet Adequacy Comment Platelets Increased; Poikilocytosis MODERATE=16-30 cells HPF (0-5); Polychromasia MODERATE = 3-4 cells HPF (0-2); Schistocytes SLIGHT = 2-5 cells HPF (0-1); Stomatocytes SLIGHT = 2-5 cells HPF (0-1); Target Cells SLIGHT = 2-5 cells HPF (0-1)
[2023-05-06 19:14] LABS: ALT (SGPT) 10 U/L (8-55); AST (SGOT) 14 U/L (5-34); Albumin 3.9 g/dL (3.5-5.0); Alkaline Phosphatase 81 U/L (40-110); Anion Gap 12 mmol/L (10-20); BUN (Urea Nitrogen) 14 mg/dL (7.0-18.7); Bilirubin, Total 0.3 mg/dL (0.2-1.2); Calc. Creatinine Clearance 0 mL/min (70-130); Calcium 9.3 mg/dL (7.8-10.44); Carbon Dioxide 24 mmol/L (22-29); Chloride 104 mmol/L (98-107); Estimated GFR 115; Globulin 3.3 g/dL (2.4-3.5); Glucose 94 mg/dL (70-105); Lipase 35 U/L (8-78); Potassium 3.8 mmol/L (3.5-5.1); Protein, Total 7.2 g/dL (6.0-8.3); Sodium 136 mmol/L (136-145)
[2023-05-06 22:56] LABS: Bacteria/HPF 2+ HPF (None Seen); Bilirubin Negative (Negative); Blood, Urine 3+ (Negative); CAUTI Indications for Culture Pelvic or flank pain; Clarity Turbid (Clear); Glucose, Urine (Dipstick) Normal (Negative); Ketone, Urine Negative (Negative); Leukocyte Negative Leu/uL (Negative); Mucous/LPF Rare LPF (<2+); Nitrite Negative (Negative); Protein, Urine (Dipstick) 10 mg/dL (Neg-Trace); RBC/HPF 21-50 HPF (0-3); Specific Gravity, Urine 1.033 (1.002-1.036); Urobilinogen 3 mg/dL (Less than 2); WBC/HPF 0-3 HPF (0-3); pH, Urine 5.5 (5.0-9.0)
[2023-05-06 22:59] LABS: Urine Culture Reflex No No
[2023-05-06] MEDS ORDERED: Morphine 4 MG/ML VIAL ONE (23:32)
[2023-05-06] MEDS ORDERED: Ondansetron PF 4 MG/2 ML Vial ONE (23:32)
[2023-05-06 23:55] LABS: Pregnancy Test - Urine (BHCG) Negative (Negative); Pregu Control Background? CLEAR/WHITE (CLR/WHITE); Pregu Control Bar Appear? YES (CONTROL BAR); Specific Gravity 1.033 (1.002-1.036)
[2023-05-07] MEDS ORDERED: Piperacillin/Tazobactam 4.5 GM VIAL ONE (01:27)
[2023-05-07] MEDS ORDERED: Sodium Chloride 0.9% 100 ML ONE (01:39)
[2023-05-07] MEDS ORDERED: Morphine 2 MG/ML VIAL ONE (02:07)
[2023-05-07 04:01] VITALS: BMI 28.6
[2023-05-07] MEDS ORDERED: Ondansetron ODT 4 MG TAB SL PRN (04:30)
[2023-05-07] MEDS ORDERED: Acetaminophen 325 MG TAB PO PRN (04:30)
[2023-05-07] MEDS: Ondansetron PF 4 MG/2 ML Vial IVP PRN (04:59)
[2023-05-07] MEDS: Morphine 2 MG/ML VIAL SLOW IVP PRN (04:59)
[2023-05-07] MEDS ORDERED: traMADol HCl 50 MG TAB PO PRN (08:48)
[2023-05-07] MEDS: HYDROcodone/Acetaminophen 5/325 mg Tablet PO PRN (20:34)
[2023-05-08 11:04] LABS: #Eosinphils 0.3 thou/uL (0.0-0.7); #Monocytes 0.5 thou/uL (0.11-0.59); #Neutrophils 3.7 thou/uL (1.40-6.50); %Basophils 0.6 % (0.0-1.0); %Eosinophils 5.1 % (0.0-10.0); %Lymphocytes 28.4 % (21.0-51.0); %Monocytes 7.5 % (0.0-10.0); %Neutrophils 58.2 % (42.0-75.0); Hematocrit 31.2 % (36.0-47.0); Hemoglobin 8.6 g/dL (12.0-16.0); Mean Corpuscular HGB CONC 27.6 g/dL (32.0-36.0); Mean Corpuscular Hemoglobin 19.7 pg (27.0-31.0); Mean Corpuscular Volume 71.6 fl (78.0-98.0); Mean Platelet Volume 9.3 fL (7.4-10.4); Platelet Count 380 10x3/uL (130-400); Red Blood Cell (RBC) Count 4.36 mill/uL (4.20-5.40); White Blood Cell (WBC) Count 6.4 10x3/uL (4.8-10.8)
[2023-05-08 11:29] LABS: ALT (SGPT) 7 U/L (8-55); AST (SGOT) 14 U/L (5-34); Albumin 3.4 g/dL (3.5-5.0); Alkaline Phosphatase 66 U/L (40-110); Anion Gap 9 mmol/L (10-20); BUN (Urea Nitrogen) 11 mg/dL (7.0-18.7); Bilirubin, Total 0.2 mg/dL (0.2-1.2); Calc. Creatinine Clearance 128 mL/min (70-130); Carbon Dioxide 23 mmol/L (22-29); Chloride 108 mmol/L (98-107); Estimated GFR 109; Glucose 104 mg/dL (70-105); Potassium 4.1 mmol/L (3.5-5.1); Protein, Total 6.4 g/dL (6.0-8.3); Sodium 136 mmol/L (136-145)
[2023-05-08 11:37] LABS: Burr Cells SLIGHT = 2-5 cells HPF (0-1); CellaVision Operator ID LAB.KW3; Hypochromia SLIGHT = 6-15 cells HPF (0-5); Microcytosis SLIGHT = 6-15 cells HPF (0-5); Platelet Adequacy Comment Platelets Normal; Polychromasia MODERATE = 3-4 cells HPF (0-2); Schistocytes SLIGHT = 2-5 cells HPF (0-1)
[2023-05-08] MEDS: CEFAZOLIN 1 GM VIAL SLOW IVP SCH (13:59)
[2023-05-08 16:21] VITALS: BP 119/72; TEMP 98.5
== END 2023-05-08 14:50 | disposition home or self-care (01) | DRG 920 ==
LOC: ERS 18:00 → ERHOLD 05-07 01:22 → SJJU 05-07 03:57
PROVIDERS: ADMIT Surgery; ATTEND Surgery
DX: L76.34 Postprocedural seroma of skin and subcutaneous tissue following other procedure (principal); L02.211 Cutaneous abscess of abdominal wall; F41.9 Anxiety disorder, unspecified; F32.A Depression, unspecified; Y83.8 Other surgical procedures as the cause of abnormal reaction of the patient, or of later complication, without mention of misadventure at the time of the procedure; F17.210 Nicotine dependence, cigarettes, uncomplicated; Z79.899 Other long term (current) drug therapy; Z87.442 Personal history of urinary calculi
CPT/HCPCS: 36415; 74177; 80053; 81001; 81025; 83690; 85025; 96374; 96375; 97139; J2270; J2272; J2405; J2543; J3490; Q9967

== ENCOUNTER 2023-08-06 06:16 | Day surgery (SDC) | payer OTHER ==
[2023-08-02 16:51] VITALS: BMI 29.9
[2023-08-06] MEDS ORDERED: Bupivacaine PF 0.5% 30 ML VIAL ONE (09:47)
[2023-08-06] MEDS ORDERED: Bacitracin Zinc Ointment 30 gm TUBE ONE (09:47)
[2023-08-06] MEDS ORDERED: PROPOFOL 20 ML ONE (10:28)
[2023-08-06] MEDS ORDERED: Sodium Chloride 0.9% 100 ML ONE (10:30)
[2023-08-06] MEDS ORDERED: CEFAZOLIN 2 GM VIAL ONE (10:30)
[2023-08-06] MEDS ORDERED: Lidocaine 1% PF 5 ML VIAL ONE (10:31)
[2023-08-06] MEDS ORDERED: fentaNYL PF 100 MCG/2 ML SYRINGE ONE (10:31)
[2023-08-06] MEDS ORDERED: ePHEDrine Sulfate 50 MG/10 ML VIAL ONE (10:56)
[2023-08-06] MEDS ORDERED: fentaNYL 50 mcg/mL 1 mL Vial ONE ×2 (12:10→12:27)
== END 2023-08-06 14:40 | disposition home or self-care (01) ==
LOC: SDC 06:16
PROVIDERS: ATTEND Orthopaedic Surgery Hand Surgery
PROC: 0LB60ZZ Excision of Left Lower Arm and Wrist Tendon, Open Approach (ICD-10-PCS; principal; 2023-08-06)
DX: M67.432 Ganglion, left wrist (principal); M65.88 Other synovitis and tenosynovitis, other site; I10 Essential (primary) hypertension; F17.210 Nicotine dependence, cigarettes, uncomplicated; E66.9 Obesity, unspecified; Z68.29 Body mass index [BMI] 29.0-29.9, adult; Z98.84 Bariatric surgery status; Z88.8 Allergy status to other drugs, medicaments and biological substances; Z88.6 Allergy status to analgesic agent; Z91.040 Latex allergy status
CPT/HCPCS: 88304; A6223; J0665; J2704; J3010; J3490

== ENCOUNTER 2023-08-07 16:28 | Emergency (ER) | payer OTHER | END 2023-08-07 18:16 | disposition left against medical advice (07) | LOC: ERS 16:28 | DX: Z53.21 Procedure and treatment not carried out due to patient leaving prior to being seen by health care provider (principal) ==

== ENCOUNTER 2023-12-15 03:11 | Emergency (ER) | payer SELFPAY ==
[2023-12-15] MEDS ORDERED: HYDROcodone/Acetaminophen 10/325 mg Tablet ONE (03:55)
== END 2023-12-15 03:59 | disposition home or self-care (01) ==
LOC: ERS 03:11
DX: K04.7 Periapical abscess without sinus (principal)
CPT/HCPCS: 99282